=== PATIENT | female | born 1990 | race Caucasian/White ===

== ENCOUNTER 2021-02-08 09:35 | Emergency (ER) | payer BC, SELFPAY ==
[2021-02-08 10:03] VITALS: BP 139/95; PULSE 86; RESP 16; TEMP 36.7; O2SAT 99
--- NOTE | 2021-02-08 10:44 | ED.URI ---
HPI - URI/Sore Throat General Chief Complaint: Upper Respiratory Infection Stated Complaint: Sore Throat Time Seen by Provider: 02/08/21 10:40 Source: patient Mode of arrival: ambulatory Limitations: no limitations History of Present Illness HPI Narrative: Mildred Wright is a 30-year-old female with a sore throat difficulty swallowing that is gotten worse since it started on Wednesday Related Data Allergies Allergy/AdvReac Type Severity Reaction Status Date / Time hydrocodone Allergy Intermediate Vomiting,[place] Verified 02/08/21 10:22 LLUCINATION S Penicillins Allergy Unknown Pruritic Verified 02/08/21 10:22 rash Sulfa (Sulfonamide Allergy Unknown Pruritic Verified 02/08/21 10:22 Antibiotics) rash Review of Systems Review of Systems: CONSTITUTIONAL: Denies fever, chills, sweats. EYES: Denies visual changes, redness, discharge. ENT: Denies rhinorrhea, has congestion, has sore throat, otalgia. CARDIOVASCULAR: Denies chest pain, palpitations, edema. RESPIRATORY: Denies dyspnea, wheezing, cough GASTROINTESTINAL: Denies abdominal pain, nausea, vomiting, diarrhea. GENITOURINARY: Denies dysuria, hematuria, abnormal discharge SKIN: Denies rash or itching. NEUROLOGIC: Denies numbness, or focal weakness. PSYCHIATRIC: Denies anxiety or depression. PMFSH Past Medical History Medical History Chronic heartburn Nausea & vomiting Family History Family History Father Family history of hypercholesterolemia Hypertension Social History Social History Smoking status: Never smoker Second hand tobacco smoke exposure: No Comments At time of signature, I agree with nursing past medical, surgical, social and family history. There is no relevant family history pertinent to the presenting complaint. Exam Narrative: GENERAL: This is a well-nourished, well-developed patient, in mild distress. HEAD: normocephalic, atraumatic. EYES: Sclera white and clear EARS: External ears normal, auditory canals clear and without drainage, TMs normal without perforation. Hearing grossly intact. NOSE: External nose normal without nasal discharge, nares without redness, no rhinorrhea. THROAT: Mucous membranes moist, posterior pharynx deep erythema with exudate NECK: Neck supple, non-tender CARDIOVASCULAR: Regular rate and rhythm without murmurs, gallops, or rubs. RESPIRATORY: Clear to auscultation. Breath sounds equal bilaterally. No wheezes, rales, or rhonchi. GASTROINTESTINAL: Abdomen soft, SKIN: warm, intact with no suspicious lesions or rash, good texture and turgor. NEURO: awake, alert, and oriented to person, place and time. There were no obvious focal neurologic abnormalities. Steady gait EXTREMITIES: Normal range of motion. BACK: Nontender without deformity Course Course Emergency Course: Patient comes with sore throat that started on Wednesday Strep test positive Started on clindamycin and prednisone Vital Signs Vital signs: Vital Signs Temperature 98.0 F 02/08/21 10:03 Pulse Rate 86 02/08/21 10:03 Respiratory Rate 16 02/08/21 10:03 Blood Pressure 139/95 H 02/08/21 10:03 Pulse Oximetry 99 02/08/21 10:03 Temperature 98.0 F 02/08/21 10:03 Pulse Rate 86 02/08/21 10:03 Respiratory Rate 16 02/08/21 10:03 Blood Pressure 139/95 H 02/08/21 10:03 Pulse Oximetry 99 02/08/21 10:03 MDM - URI/Sore Throat Differential Diagnosis Differential diagnosis: Likely upper respiratory infection, viral infection, bronchitis, influenza and pharyngitis Critical Care Time Critical Care Time Critical Care Time: No Discharge Plan Discharge Clinical Impression: Pharyngitis Qualifiers: Pharyngitis/tonsillitis etiology: streptococcus Qualified Code(s): J02.0 - Streptococcal pharyngitis Patient Disposition: Home, Self-Care Condit
== END 2021-02-08 11:00 | disposition home or self-care (01) ==
PROVIDERS: Emergency Provider Nurse Practitioner
DX: J02.0 Streptococcal pharyngitis (principal); R12 Heartburn
CPT/HCPCS: 87880; 99213; G0463

== ENCOUNTER 2021-04-11 10:53 | Emergency (ER) | payer BC, SELFPAY ==
[2021-04-11 12:05] VITALS: BP 156/81; PULSE 71; RESP 18; TEMP 36.3; O2SAT 100
--- NOTE | 2021-04-11 12:55 | ED.EAR ---
HPI - Ear Problem General Chief complaint: Ear Stated complaint: lt earache Time Seen by Provider: 04/11/21 12:55 Source: patient, RN notes reviewed and old records reviewed Mode of arrival: ambulatory Limitations: no limitations History of Present Illness HPI Narrative: 30-year-old female who presents to [facility] with complaints of sharp shooting left ear pain today. Patient denies any cough, no sinus drainage, sore throat, chills, fevers or body aches. Patient reports that she had strep throat this past year even though she has had T&A and was treated with Clindamycin.Patient has had COVID vaccination and booster and flu shot.. MD Complaint: ear pain Location: left ear Related Data Allergies Allergy/AdvReac Type Severity Reaction Status Date / Time hydrocodone Allergy Intermediate Vomiting,[place] Verified 04/11/21 12:13 LLUCINATION S Penicillins Allergy Unknown Pruritic Verified 04/11/21 12:13 rash Sulfa (Sulfonamide Allergy Unknown Pruritic Verified 04/11/21 12:13 Antibiotics) rash Review of Systems Review of Systems: CONSTITUTIONAL: Denies fever, chills, or sweats. EYES: Denies visual changes, redness, or discharge. ENT: Denies rhinorrhea, congestion, sore throat positive for left otalgia. CARDIOVASCULAR: Denies chest pain, palpitations, or edema. RESPIRATORY: Denies cough or dyspnea. GASTROINTESTINAL: Denies abdominal pain, nausea, vomiting, or diarrhea. GENITOURINARY: Denies dysuria or hematuria. SKIN: Denies rash or itching. MUSCULOSKELETAL: Denies back pain, joint pain, or myalgia. NEUROLOGIC: Denies headache, numbness, or weakness. PSYCHIATRIC: Denies anxiety or depression. All systems reviewed & are unremarkable except as noted in HPI and below [facility] Past Medical History Medical History (Updated 04/11/21 @ 13:24 by Nadege Mcdowell NP) Chronic heartburn Nausea & vomiting Surgical History Surgical History (Updated 04/11/21 @ 22:55 by Nadege Mcdowell NP) History of repair of anterior cruciate ligament of left knee History of tonsillectomy and adenoidectomy S/P wisdom tooth extraction Family History Family History Father Family history of hypercholesterolemia Hypertension Social History Social History (Updated 04/11/21 @ 22:52 by Nadege Mcdowell NP) Smoking status: Never smoker Second hand tobacco smoke exposure: No Alcohol intake: current Alcohol use details: rare social Substance use: never Living arrangements: with family Gender identity (if verbalized by the patient): Female Comments At time of signature, agree with nursing past medical, surgical, social and family history. There is no relevant family history pertinent to the presenting complaint Exam Narrative: GENERAL: Well-appearing, well-nourished, and in no acute distress. HEAD: Normocephalic, atraumatic. EYES: PERRLA and EOMI. ENT: Nares with minimal redness clear rhinorrhea no epistaxis. Mucous membranes moist.Left TM red with some bulging right TM normal with good light reflex, throat pink with no lesions exudates no tonsils present some post nasal drainage present NECK: Supple.no lymphadenopathy CHEST: Clear to auscultation. No respiratory distress.no cough SAO2 100% on room air HEART: Regular rate and rhythm. No murmur heard. Normal peripheral pulses. ABDOMEN: Soft, nontender, nondistended, normal active bowel sounds. EXTREMITIES: Normal range of motion. No edema. SKIN: Warm, dry, no rash. NEURO: No focal deficits. Alert and oriented x3. Course Course Level of Care: Express Care Visit Vital Signs Vital signs: Vital Signs Temperature 36.3 C L 04/11/21 12:05 Pulse Rate 71 04/11/21 12:05 Respiratory Rate 18 04/11/21 12:05 Blood Pressure 156/81 H 04/11/21 12:05 Pulse Oximetry 100 04/11/21 12:05 Temperature 36.3 C L 04/11/21 12:05 Pulse Rate 71 04/11/21 12:05 Respiratory Rate 18 04/11/21 12:05 Blood Pre
== END 2021-04-11 13:25 | disposition home or self-care (01) ==
PROVIDERS: Emergency Provider Registered Nurse
DX: H65.02 Acute serous otitis media, left ear (principal); R12 Heartburn
CPT/HCPCS: 99213; G0463

== ENCOUNTER 2022-07-06 17:57 | Emergency (ER) | payer OTHER, SELFPAY ==
[2022-07-06 18:07] VITALS: BP 147/92; PULSE 84; RESP 18; TEMP 36.4; O2SAT 100
--- NOTE | 2022-07-06 18:47 | ED.EYEPROB ---
HPI - Eye Problem General Chief complaint: Eye Problems Stated complaint: Rt Eye Irritation Source: patient Mode of arrival: ambulatory Limitations: no limitations History of Present Illness HPI Narrative: 32-year-old female presents to [facility] with complaints of irritation, redness, purulent drainage and matting to her right eye since this morning. Patient does not wear contacts or glasses. Patient denies injury to her eye. Patient denies cough, congestion, runny nose, fever, body aches, chills, nausea, vomiting or diarrhea. 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 MD chief complaint: eye pain and eye redness Onset (ago): hour(s) (8) Location: right eye Eye Symptoms: redness, pain and discharge Mechanism: none Associated symptoms: none Treatments Prior to Arrival: OTC eye drops Related Data Home Medications Medication Instructions Recorded Confirmed famotidine 20 mg tablet 20 mg PO BID 04/29/21 07/06/22 Allergies Allergy/AdvReac Type Severity Reaction Status Date / Time hydrocodone AdvReac Intermediate Vomiting,[place] Verified 07/06/22 18:07 LLUCINATION S Penicillins AdvReac Mild Pruritic Verified 07/06/22 18:07 rash Sulfa (Sulfonamide AdvReac Mild Pruritic Verified 07/06/22 18:07 Antibiotics) rash Review of Systems Constitutional: Constitutional: Denies chills, Denies fatigue, Denies fever(s) and Denies weakness Eyes: Comments: Right eye redness, irritation, purulent drainage and matting ENT: Denies vertigo, Denies dizziness, Denies nasal congestion and Denies sore throat Respiratory: Respiratory: Denies cough, Denies dyspnea and Denies wheezing Gastrointestinal: Gastrointestinal: Denies diarrhea, Denies nausea and Denies vomiting Integumentary/Breasts: Skin/Breast: Denies rash Neurologic: Denies vertigo, Denies dizziness and Denies syncope [facility] Past Medical History Medical History Anxiety Anxiety BMI 26.0-26.9,adult BMI 28.0-28.9,adult BMI 29.0-29.9,adult Chronic heartburn Elevated BP without diagnosis of hypertension Gestational hypertension Grieving Heartburn Insomnia Major depression Nausea & vomiting Urinary frequency Surgical History Surgical History History of repair of anterior cruciate ligament of left knee (~2006) History of tonsillectomy and adenoidectomy S/P wisdom tooth extraction Family History Family History Father Family history of hypercholesterolemia Hypertension Mother Thyroid disease Grandparent Hypertension Lung cancer maternal grandmother Grandparent Diabetes mellitus Social History Social History Smoking status: Never smoker Second hand tobacco smoke exposure: No Alcohol intake: current Drinks per week: 1 Alcohol use details: rare social Substance use: never Substance use type: does not use Lack of Transportation: No Lack of Food: Never True Current Housing: I Have Housing Concerned About Future Housing: No Difficulty Paying Gas/Electric Bills: No Difficulty Paying for Meds: No Currently Unemployed: No Education: Bachelor's Degree Difficulty w/ Childcare or Family Care: No Living arrangements: other Additional living arrangements comments: Occupation/Education: occupation Additional occupation/education comments: paraprofessional Gender identity (if verbalized by the patient): Female Sexual Orientation (if Verbalized by the Patient): Straight or Heterosexual Comments At time of signature, I agree with nursing past medical, surgical, social and family history. There is no relevant family history pertinent to the presenting complaint. Exam Const: General: healthy appearing Nutritional Appearance
== END 2022-07-06 18:54 | disposition home or self-care (01) ==
PROVIDERS: Emergency Provider Nurse Practitioner Family; PCP Nurse Practitioner Family
DX: H10.31 Unspecified acute conjunctivitis, right eye (principal); F41.9 Anxiety disorder, unspecified; F32.9 Major depressive disorder, single episode, unspecified
CPT/HCPCS: 99213; G0463

== ENCOUNTER 2024-11-10 08:47 | Outpatient (CLI) | payer OTHER, SELFPAY ==
--- NOTE | 2024-11-10 09:05 | ECG_ITS ---
Test Date: 2024-11-10 09:19:32 Measurements Intervals [place] Rate: 69 P: 54 [place]: 98 QRS: 71 QRSD: 106 T: 51 QT: 386 QTc: 415 Interpretive Statements SINUS RHYTHM WITH SHORT [place] INTERVAL INCOMPLETE RIGHT BUNDLE BRANCH BLOCK BASELINE ARTIFACT- I, II, III, AVR, AVF BORDERLINE ECG No previous ECG available for comparison Electronically Signed On 11-10-2024 09:28:24 CDT by Mayo Billingsley D.O.
== END 2024-11-10 08:48 | disposition home or self-care (01) ==
LOC: ANHCARD 08:50
PROVIDERS: PCP Nurse Practitioner Family; Visit Provider Nurse Practitioner Family
DX: R94.31 Abnormal electrocardiogram [ECG] [EKG] (principal); I10 Essential (primary) hypertension
CPT/HCPCS: 93005